=== PATIENT | female | born 1995 | race Caucasian/White ===

== ENCOUNTER 2017-05-21 00:40 | Emergency (ER) | payer SELFPAY ==
--- NOTE | 2017-05-21 05:10 | ER ---
ADMIT: 05/21/2017 RM/LOC: ER [facility] MR#: [id number] [address] [facility] [address], [place] [id number] [address] [place] [address] Emergency Room Report SEX: F AGE: 21 : 1995 DATE: 05/21/2017 The patient is a 21-year-old female, who presents with a friend with a suicidal ideation over break-up with boyfriend today. Has been drinking since football game earlier in the day. Denies any suicidal plan or gestures, has been previously hospitalized in [place] for EPC. No family history of mental illness or completed suicide. Exam is remarkable for nontoxic, afebrile, intoxicated female. Otherwise, normal mental status exam. EPC lab only remarkable for alcohol 131. Tox screen negative. Salicylate and acetaminophen negative. Discussed case with Dashawn Jackson, who has no open beds. [place] [employer] investigated for possible EPC, concurs she is not a danger to herself. Discussed case with mother who is comfortable with daughter being discharged home with a sober friend. Recommended follow up [facility] this week for psychiatric evaluation. Followup psychologist as previously scheduled. Moo Cee MD/ alexey JOB #: [id number] CC: Moo Cee MD, Attending Physician TU Ferreira, Family Physician TU Ferreira
--- NOTE | 2017-05-22 10:48 | NUR ---
SAD person referral. Called and spoke with pt mother. States pt has a counseling appt today with Jeanie Delgado. Mom states that she took work off today to stay with pt to ensure she was safe. Mom states she did call [facility] yesturday and she felt she could keep pt safe, therefore, she stayed with the pt. Pt does not take any medications. Mom plans to make a psych eval appt for pt. Mom is hopefull that counseling will also help pt. Mom denies any other needs or concerns at this time.
== END 2017-05-21 02:30 | disposition home or self-care (01) ==
LOC: ER 00:40
DX: F10.10 Alcohol abuse, uncomplicated (principal); R45.851 Suicidal ideations; Z88.0 Allergy status to penicillin